=== PATIENT | female | born 1955 | race Caucasian/White ===

== ENCOUNTER 2018-09-06 10:20 | Emergency (ER) | payer MEDICARE, MEDICAID ==
[~2018-09-06] VITALS: Ht 162.6 cm; Wt 64.5 kg
[~2018-09-06 10:20] MED LIST: ACET-890 PO; AMLO10TA PO; BENZ1LOZ61 PO; DIVA-37 PO; DIVA-76 PO; DOCU-148 PO; DOCU100C41 PO; FAMO-1 PO; FAMO20TA8 PO; LACT-187 PO; LEVO88TA7 PO; LORA-660 PO; LORA0.5T PO; LORA10TA7 PO; LOSA25TA12 PO; PROP40TA7 PO; PROP40TA72 PO; QUET-1 PO; QUET100T33 PO; TEMA30CA PO; TEMA30CA5 PO
[2018-09-06 12:01] LABS: BASOPHILS % (AUTO) 0.5 % (0-1); EOSINOPHILS # (AUTO) 0.1 X10'3 (0-0.9); HEMATOCRIT 24.9 % (35.0-45.0); HEMOGLOBIN 8.2 g/dl (12.0-16.0); LYMPHOCYTES # (AUTO) 1.4 X10'3 (1.1-4.8); LYMPHOCYTES % (AUTO) 39.9 % (21-51); MEAN CORPUSCULAR HEMOGLOBIN 29.7 PG (27.0-31.0); MEAN CORPUSCULAR VOLUME 89.9 FL (78-98); MEAN PLATELET VOLUME 7.7 FL (7.4-10.4); MONOCYTES # (AUTO) 0.3 X10'3 (0-0.9); MONOCYTES % (AUTO) 9.2 % (2-12); NEUTROPHILS # (AUTO) 1.7 X10'3 (1.8-7.7); NEUTROPHILS % (AUTO) 48.4 % (42-75); PLATELET COUNT 211 X10'3 (140-440); RED BLOOD COUNT 2.77 X10'6 (4.20-5.60); WHITE BLOOD COUNT 3.5 X10'3 (4.5-11.0)
[2018-09-06 12:15] LABS: URINE AMPHETAMINE SCREEN NEGATIVE (Neg); URINE BARBITUATE SCREEN NEGATIVE (Neg); URINE BENZODIAZEPINES SCREEN NEGATIVE (Neg); URINE CANNABINOID SCREEN NEGATIVE (Neg); URINE COCAINE SCREEN NEGATIVE (Neg); URINE METHADONE SCREEN NEGATIVE (Neg); URINE OPIATE SCREEN NEGATIVE (Neg); URINE PHENCYCLIDINE SCREEN NEGATIVE (Neg)
[2018-09-06 12:19] LABS: ALANINE AMINOTRANSFERASE 19 U/L (12-78); ALBUMIN 3.1 G/DL (3.4-5.0); ALBUMIN/GLOBULIN RATIO 0.8 (1.1-1.5); ALKALINE PHOSPHATASE 87 IU/L (46-116); ANION GAP 12 (8-16); ASPARTATE AMINO TRANSFERASE 28 U/L (10-37); BILIRUBIN,TOTAL 0.4 MG/DL (0.1-1.0); BLOOD UREA NITROGEN 53 MG/DL (7-18); BUN/CREATININE RATIO 10.4 (6.6-38.0); CALCIUM 10.2 MG/DL (8.5-10.1); CHLORIDE 105 MMOL/L (99-107); CREATININE 5.12 MG/DL (0.40-0.90); ETHANOL < 0.010 GM/DL (0.0-0.010); GLUCOSE 92 MG/DL (70-104); POTASSIUM 3.8 MMOL/L (3.5-5.1); SODIUM 142 MMOL/L (135-145); TOTAL PROTEIN 7.1 G/DL (6.4-8.2); eGFR 9 ML/MIN
[2018-09-06] MEDS ORDERED: normal saline 1000ML IV soln IVB ONE (14:05)
[2018-09-06] MEDS ORDERED: LEVO100T PO (17:23)
[2018-09-06] MEDS ORDERED: QUET400T3 PO (17:31)
[2018-09-06 17:36] LABS: ANION GAP 11 (8-16); BLOOD UREA NITROGEN 49 MG/DL (7-18); BUN/CREATININE RATIO 10.2 (6.6-38.0); CALCIUM 9.9 MG/DL (8.5-10.1); CHLORIDE 107 MMOL/L (99-107); CREATININE 4.82 MG/DL (0.40-0.90); GLUCOSE 87 MG/DL (70-104); POTASSIUM 3.8 MMOL/L (3.5-5.1); SODIUM 144 MMOL/L (135-145); TOTAL CARBON DIOXIDE 26.2 MMOL/L (24-32); eGFR 9 ML/MIN
[2018-09-06] MEDS: LORazepam 0.5 MG tablet PO PRN ×2 (17:55→20:34)
[2018-09-06] MEDS: LACTOSE FREE FOOD PO SCH (18:00)
[2018-09-06] MEDS ORDERED: acetaminophen 325mg tablet PO PRN (18:00)
[2018-09-06] MEDS ORDERED: PROPRANOLOL HCL PO SCH (20:00)
[2018-09-06] MEDS: propranolol 40mg tablet PO SCH ×2 (20:34→21:14)
[2018-09-06] MEDS: famotidine 20mg tablet PO SCH ×2 (20:34→21:14)
[2018-09-06] MEDS: quetiapine 100mg tablet PO SCH ×2 (20:34→21:00)
[2018-09-06] MEDS: docusate sod 100mg capsule PO SCH ×2 (20:35→21:00)
[2018-09-06] MEDS ORDERED: QUETIAPINE FUMARATE PO SCH (21:00)
[2018-09-06] MEDS ORDERED: haloperidol lactate 5mg/ml inj IM ONE (22:40)
[2018-09-06] MEDS ORDERED: LORazepam 2 mg/ml vial IM ONE (22:40)
[2018-09-07 00:59] LABS: CLARITY,URINE CLEAR (Clear); COLOR,URINE YELLOW (Yellow); GLUCOSE, URINE NEGATIVE (Neg); KETONES,URINE NEGATIVE (Neg); LEUKOCYTE ESTERASE ,URINE NEGATIVE (Neg); NITRITES, URINE NEGATIVE (Neg); OCCULT BLOOD,URINE LARGE (Neg); PH,URINE 6.5 (4.8-8.0); PROTEIN,URINE NEGATIVE (Neg); UROBILINOGEN,URINE 0.2 E.U/dL (0.2-1.0)
[2018-09-07 01:04] LABS: UA COLLECTION TYPE CLN CATCH MIDSTREAM
[2018-09-07 01:07] LABS: BACTERIA,URINE FEW /HPF (Neg); MUCUS STRANDS NONE SEEN /LPF (Neg); SQUAMOUS EPITHELIAL CELL,UR FEW /LPF (FEW); WBC,URINE NONE SEEN /HPF (0-4)
[2018-09-07] MEDS ORDERED: haloperidol lactate 5mg/ml inj IM ONE (02:00)
[2018-09-07] MEDS ORDERED: normal saline 1000ML IV soln IVB ONE (06:25)
[2018-09-07] MEDS ORDERED: amLODIPine 5mg tablet PO SCH (08:00)
[2018-09-07] MEDS: LACTOSE FREE FOOD PO SCH (08:00)
[2018-09-07] MEDS ORDERED: losartan 25mg tablet PO SCH (08:00)
[2018-09-07] MEDS ORDERED: levoTHYROXINE 100mcg tablet PO SCH (08:00)
[2018-09-07] MEDS ORDERED: non-formulary drug (Amlodipine Besylate 1 TABLET) PO SCH (08:00)
[2018-09-07] MEDS: famotidine 20mg tablet PO SCH (08:01)
[2018-09-07] MEDS: propranolol 40mg tablet PO SCH (08:02)
[2018-09-07] MEDS: LORazepam 0.5 MG tablet PO PRN (08:10)
[2018-09-07] MEDS ORDERED: LORazepam 2 mg/ml vial IV ONE (09:00)
[2018-09-07 12:09] LABS: ALBUMIN 2.8 G/DL (3.4-5.0); ANION GAP 9 (8-16); BLOOD UREA NITROGEN 43 MG/DL (7-18); BUN/CREATININE RATIO 10.7 (6.6-38.0); CALCIUM 9.8 MG/DL (8.5-10.1); CHLORIDE 110 MMOL/L (99-107); CREATININE 4.03 MG/DL (0.40-0.90); GLUCOSE 95 MG/DL (70-104); POTASSIUM 3.7 MMOL/L (3.5-5.1); SODIUM 145 MMOL/L (135-145); TOTAL CARBON DIOXIDE 25.7 MMOL/L (24-32); eGFR 11 ML/MIN
[2018-09-07 12:49] LABS: CLARITY,URINE CLEAR (Clear); COLOR,URINE YELLOW (Yellow); GLUCOSE, URINE NEGATIVE (Neg); KETONES,URINE NEGATIVE (Neg); LEUKOCYTE ESTERASE ,URINE NEGATIVE (Neg); NITRITES, URINE NEGATIVE (Neg); OCCULT BLOOD,URINE LARGE (Neg); PH,URINE 6.5 (4.8-8.0); PROTEIN,URINE NEGATIVE (Neg); UROBILINOGEN,URINE 0.2 E.U/dL (0.2-1.0)
[2018-09-07 12:57] LABS: UA COLLECTION TYPE CLN CATCH MIDSTREAM
[2018-09-07 12:58] LABS: BACTERIA,URINE NONE SEEN /HPF (Neg); MUCUS STRANDS NONE SEEN /LPF (Neg); SQUAMOUS EPITHELIAL CELL,UR NONE SEEN /LPF (FEW); WBC,URINE NONE SEEN /HPF (0-4)
[2018-09-07] MEDS ORDERED: lactose-reduced food (Ensure Enlive) - 237ml bottle PO SCH (13:08)
[2018-09-07 16:47] VITALS: BP 140/74
== END 2018-09-07 16:49 | disposition home or self-care (01) ==
LOC: ER 10:21
DX: F28 Other psychotic disorder not due to a substance or known physiological condition (principal); F20.9 Schizophrenia, unspecified; F32.9 Major depressive disorder, single episode, unspecified; Z90.49 Acquired absence of other specified parts of digestive tract; Z98.890 Other specified postprocedural states; Z86.718 Personal history of other venous thrombosis and embolism; Z88.2 Allergy status to sulfonamides; Z88.1 Allergy status to other antibiotic agents; Z79.899 Other long term (current) drug therapy
CPT/HCPCS: 36415; 80048; 80053; 80305; 80320; 81001; 84443; 85025; 96372; 96374; 99285; J1630; J2060

== ENCOUNTER 2018-09-07 16:38 | Inpatient (IN) | payer MEDICARE, MEDICAID ==
[~2018-09-07] VITALS: Ht 167.6 cm; Wt 75.8 kg
[~2018-09-07 16:38] MED LIST changes: -ACET-890 PO; -DIVA-37 PO; -DOCU100C41 PO; -FAMO20TA8 PO; +LEVO100T PO; -LEVO88TA7 PO; -LORA-660 PO; -PROP40TA7 PO; -QUET-1 PO; -QUET100T33 PO; +QUET400T3 PO; -TEMA30CA PO
[2018-09-07 17:04] VITALS: BP 130/74
[2018-09-07] MEDS ORDERED: magnesium hydroxide 30ml (MOM) UD suspension PO PRN (17:04)
[2018-09-07] MEDS ORDERED: acetaminophen 325mg tablet PO PRN ×2 (17:04)
[2018-09-07] MEDS ORDERED: mag hydrox/Alum hydrox/simeth 30ml oral suspension PO PRN (17:04)
[2018-09-07] MEDS ORDERED: tuberculin, purif. prot. deriv. 5 units/0.1ml ID ONE (17:25)
[2018-09-07 18:33] LABS: CHOL/HDL RATIO 3.1 (0.00-4.99); CHOLESTEROL 244 MG/DL (0-200); HDL CHOLESTEROL 79 MG/DL (35-60); LDL CHOLESTEROL 114 MG/DL (50-100); TRIGLYCERIDES 128 MG/DL (20-135)
[2018-09-07] MEDS ORDERED: benzocaine/menthol oral lozeng 1 EACH BOX MM SCH (19:00)
[2018-09-07] MEDS ORDERED: benzocaine/menthol oral lozeng 1 EACH BOX MM PRN (19:05)
[2018-09-07 20:00] VITALS: BP 110/66
[2018-09-07] MEDS: divalproex sodium 500mg tablet.DR PO SCH (20:56)
[2018-09-07] MEDS: quetiapine 100mg tablet PO SCH (20:57)
[2018-09-07] MEDS: propranolol 40mg tablet PO SCH (20:58)
[2018-09-07] MEDS: famotidine 20mg tablet PO SCH (20:58)
[2018-09-07] MEDS: docusate sod 100mg capsule PO SCH (20:58)
[2018-09-07] MEDS ORDERED: docusate sod 100mg capsule PO SCH (21:00)
[2018-09-08 08:00] VITALS: BP 92/62
[2018-09-08] MEDS: propranolol 40mg tablet PO SCH ×2 (08:00→19:29)
[2018-09-08] MEDS ORDERED: docusate sod 100mg capsule PO SCH (08:00)
[2018-09-08] MEDS: losartan 25mg tablet PO SCH (08:00)
[2018-09-08] MEDS: amLODIPine 5mg tablet PO SCH (08:00)
[2018-09-08] MEDS: lactose-reduced food (Ensure Enlive) - 237ml bottle PO SCH ×2 (08:00→13:00)
[2018-09-08] MEDS ORDERED: normal saline 1000ml 1,000 ML IV ONE (09:00)
[2018-09-08] MEDS: divalproex sodium 500mg tablet.DR PO SCH ×2 (09:10→19:29)
[2018-09-08] MEDS: levoTHYROXINE 100mcg tablet PO SCH (09:11)
[2018-09-08] MEDS: docusate sod 100mg capsule PO SCH ×2 (09:11→19:29)
[2018-09-08] MEDS: famotidine 20mg tablet PO SCH ×2 (09:11→19:29)
[2018-09-08] MEDS: loratadine 10mg tablet PO SCH (09:12)
[2018-09-08 11:29] LABS: BASOPHILS % (AUTO) 0.4 % (0-1); EOSINOPHILS # (AUTO) 0.2 X10'3 (0-0.9); EOSINOPHILS % (AUTO) 2.9 % (0-6); HEMOGLOBIN 9.4 g/dl (12.0-16.0); LYMPHOCYTES # (AUTO) 2.4 X10'3 (1.1-4.8); LYMPHOCYTES % (AUTO) 37.1 % (21-51); MEAN CORPUSCULAR HEMOGLOBIN 29.6 PG (27.0-31.0); MEAN CORPUSCULAR HGB CONC 32.6 % (33.0-36.5); MEAN CORPUSCULAR VOLUME 90.8 FL (78-98); MEAN PLATELET VOLUME 8.4 FL (7.4-10.4); MONOCYTES # (AUTO) 0.4 X10'3 (0-0.9); MONOCYTES % (AUTO) 5.5 % (2-12); NEUTROPHILS # (AUTO) 3.5 X10'3 (1.8-7.7); NEUTROPHILS % (AUTO) 54.1 % (42-75); PLATELET COUNT 266 X10'3 (140-440); RED BLOOD COUNT 3.19 X10'6 (4.20-5.60); WHITE BLOOD COUNT 6.4 X10'3 (4.5-11.0)
[2018-09-08 11:40] LABS: ALANINE AMINOTRANSFERASE 19 U/L (12-78); ALBUMIN 3.1 G/DL (3.4-5.0); ALBUMIN/GLOBULIN RATIO 0.7 (1.1-1.5); ALKALINE PHOSPHATASE 110 IU/L (46-116); ANION GAP 10 (8-16); ASPARTATE AMINO TRANSFERASE 22 U/L (10-37); BILIRUBIN,TOTAL 0.3 MG/DL (0.1-1.0); BLOOD UREA NITROGEN 43 MG/DL (7-18); BUN/CREATININE RATIO 10.9 (6.6-38.0); CALCIUM 9.7 MG/DL (8.5-10.1); CHLORIDE 106 MMOL/L (99-107); CREATININE 3.96 MG/DL (0.40-0.90); GLUCOSE 90 MG/DL (70-104); POTASSIUM 4.2 MMOL/L (3.5-5.1); SODIUM 141 MMOL/L (135-145); TOTAL CARBON DIOXIDE 24.9 MMOL/L (24-32); TOTAL PROTEIN 7.6 G/DL (6.4-8.2); eGFR 11 ML/MIN
[2018-09-08] MEDS: normal saline 1000ml 1,000 ML IV SCH ×2 (13:59→22:55)
[2018-09-08] MEDS ORDERED: haloperidol 5mg tablet PO ONE (14:50)
[2018-09-08] MEDS ORDERED: haloperidol 1mg tablet PO ONE (15:05)
[2018-09-08 17:58] LABS: PHOSPHORUS 2.7 MG/DL (2.3-4.5)
[2018-09-08] MEDS: NUT.TX.IMP.RENAL FXN,LAC-REDUC (Nepro) 237 ML VANILLA PO SCH (18:00)
[2018-09-08] MEDS ORDERED: NUT.TX.IMP.RENAL FXN,LAC-REDUC (Nepro) 237 ML VANILLA PO SCH (18:00)
[2018-09-08 19:00] VITALS: BP 98/60
[2018-09-08] MEDS: quetiapine 100mg tablet PO SCH (19:28)
[2018-09-08] MEDS: haloperidol 1mg tablet PO SCH (19:29)
[2018-09-08] MEDS: temazepam 15mg capsule PO PRN (21:00)
[2018-09-08] MEDS ORDERED: OLANZapine 5mg rapidly disint. tablet PO ONE (22:50)
[2018-09-08] MEDS: LORazepam 0.5 MG tablet PO PRN (22:55)
[2018-09-09 07:02] LABS: BASOPHILS % (AUTO) 0.3 % (0-1); EOSINOPHILS # (AUTO) 0.3 X10'3 (0-0.9); EOSINOPHILS % (AUTO) 5.9 % (0-6); HEMATOCRIT 25.1 % (35.0-45.0); HEMOGLOBIN 8.2 g/dl (12.0-16.0); LYMPHOCYTES # (AUTO) 1.6 X10'3 (1.1-4.8); LYMPHOCYTES % (AUTO) 36.5 % (21-51); MEAN CORPUSCULAR HEMOGLOBIN 29.6 PG (27.0-31.0); MEAN CORPUSCULAR HGB CONC 32.7 % (33.0-36.5); MEAN CORPUSCULAR VOLUME 90.6 FL (78-98); MEAN PLATELET VOLUME 7.9 FL (7.4-10.4); MONOCYTES # (AUTO) 0.3 X10'3 (0-0.9); MONOCYTES % (AUTO) 6.2 % (2-12); NEUTROPHILS # (AUTO) 2.3 X10'3 (1.8-7.7); NEUTROPHILS % (AUTO) 51.1 % (42-75); PLATELET COUNT 199 X10'3 (140-440); RED BLOOD COUNT 2.78 X10'6 (4.20-5.60); RED CELL DISTRIBUTION WIDTH 16.8 % (11.5-14.5); WHITE BLOOD COUNT 4.5 X10'3 (4.5-11.0)
[2018-09-09] MEDS: normal saline 1000ml 1,000 ML IV SCH ×2 (07:12→18:50)
[2018-09-09 07:22] LABS: ALBUMIN 2.2 G/DL (3.4-5.0); ANION GAP 8 (8-16); BLOOD UREA NITROGEN 37 MG/DL (7-18); BUN/CREATININE RATIO 11.5 (6.6-38.0); CALCIUM 9.4 MG/DL (8.5-10.1); CHLORIDE 113 MMOL/L (99-107); CREATININE 3.22 MG/DL (0.40-0.90); GLUCOSE 92 MG/DL (70-104); POTASSIUM 4.2 MMOL/L (3.5-5.1); SODIUM 145 MMOL/L (135-145); TOTAL CARBON DIOXIDE 23.9 MMOL/L (24-32); eGFR 15 ML/MIN
[2018-09-09] MEDS: levoTHYROXINE 100mcg tablet PO SCH (07:37)
[2018-09-09] MEDS: loratadine 10mg tablet PO SCH (07:37)
[2018-09-09] MEDS: propranolol 40mg tablet PO SCH ×2 (07:37→20:35)
[2018-09-09] MEDS: losartan 25mg tablet PO SCH (07:39)
[2018-09-09] MEDS: famotidine 20mg tablet PO SCH ×2 (07:39→20:36)
[2018-09-09] MEDS: haloperidol 1mg tablet PO SCH ×2 (07:39→20:36)
[2018-09-09] MEDS: amLODIPine 5mg tablet PO SCH (07:39)
[2018-09-09] MEDS: divalproex sodium 500mg tablet.DR PO SCH ×2 (07:39→20:37)
[2018-09-09] MEDS: docusate sod 100mg capsule PO SCH ×2 (07:51→20:35)
[2018-09-09] MEDS: LORazepam 0.5 MG tablet PO PRN (07:55)
[2018-09-09 08:00] VITALS: BP 127/70
[2018-09-09] MEDS: NUT.TX.IMP.RENAL FXN,LAC-REDUC (Nepro) 237 ML VANILLA PO SCH ×3 (08:00→18:16)
[2018-09-09] MEDS ORDERED: LORazepam 0.5 MG tablet PO ONE ×2 (08:20→12:15)
[2018-09-09] MEDS ORDERED: OLANZapine 5mg rapidly disint. tablet PO ONE (08:20)
[2018-09-09] MEDS ORDERED: haloperidol 1mg tablet PO ONE (12:15)
[2018-09-09 17:58] LABS: CLARITY,URINE CLEAR (Clear); COLOR,URINE YELLOW (Yellow); GLUCOSE, URINE NEGATIVE (Neg); KETONES,URINE NEGATIVE (Neg); LEUKOCYTE ESTERASE ,URINE TRACE (Neg); NITRITES, URINE NEGATIVE (Neg); OCCULT BLOOD,URINE SMALL (Neg); PH,URINE 6.5 (4.8-8.0); PROTEIN,URINE NEGATIVE (Neg); UA COLLECTION TYPE CLN CATCH MIDSTREAM; UROBILINOGEN,URINE 0.2 E.U/dL (0.2-1.0)
[2018-09-09 18:06] LABS: SQUAMOUS EPITHELIAL CELL,UR FEW /LPF (FEW)
[2018-09-09 18:09] LABS: BACTERIA,URINE FEW /HPF (Neg)
[2018-09-09 20:00] VITALS: BP 155/56
[2018-09-09] MEDS: quetiapine 100mg tablet PO SCH (20:35)
[2018-09-09] MEDS: olanzapine 10mg tablet PO SCH (20:36)
[2018-09-09] MEDS: LORazepam 0.5 MG tablet PO SCH (20:37)
[2018-09-09] MEDS ORDERED: OLANZapine 2.5MG tablet PO ONE (21:00)
[2018-09-10] MEDS: normal saline 1000ml 1,000 ML IV SCH (04:53)
[2018-09-10 08:00] VITALS: BP 104/72
[2018-09-10] MEDS: levoTHYROXINE 100mcg tablet PO SCH (08:14)
[2018-09-10] MEDS: LORazepam 0.5 MG tablet PO SCH ×3 (08:14→21:02)
[2018-09-10] MEDS: famotidine 20mg tablet PO SCH ×2 (08:14→21:01)
[2018-09-10] MEDS: losartan 25mg tablet PO SCH (08:15)
[2018-09-10] MEDS: amLODIPine 5mg tablet PO SCH (08:15)
[2018-09-10] MEDS: docusate sod 100mg capsule PO SCH ×2 (08:15→21:01)
[2018-09-10] MEDS: divalproex sodium 500mg tablet.DR PO SCH ×3 (08:15→21:02)
[2018-09-10] MEDS: loratadine 10mg tablet PO SCH (08:15)
[2018-09-10] MEDS: propranolol 40mg tablet PO SCH ×2 (08:15→21:00)
[2018-09-10] MEDS: NUT.TX.IMP.RENAL FXN,LAC-REDUC (Nepro) 237 ML VANILLA PO SCH ×3 (08:16→17:24)
[2018-09-10] MEDS: haloperidol 1mg tablet PO SCH ×3 (08:16→21:01)
[2018-09-10 10:24] LABS: ALBUMIN 2.5 G/DL (3.4-5.0); ANION GAP 9 (8-16); BLOOD UREA NITROGEN 31 MG/DL (7-18); BUN/CREATININE RATIO 10.7 (6.6-38.0); CALCIUM 9.7 MG/DL (8.5-10.1); CHLORIDE 113 MMOL/L (99-107); CREATININE 2.89 MG/DL (0.40-0.90); GLUCOSE 88 MG/DL (70-104); POTASSIUM 4.4 MMOL/L (3.5-5.1); SODIUM 146 MMOL/L (135-145); eGFR 17 ML/MIN
[2018-09-10] MEDS: sodium chloride 0.45% 1,000 ML IV SCH (14:50)
[2018-09-10 19:57] VITALS: BP 129/32
[2018-09-10] MEDS: olanzapine 10mg tablet PO SCH (21:01)
[2018-09-10] MEDS: quetiapine 100mg tablet PO SCH (21:02)
[2018-09-11] MEDS: sodium chloride 0.45% 1,000 ML IV SCH ×2 (04:28→17:57)
[2018-09-11 08:00] VITALS: BP 109/59
[2018-09-11] MEDS: levoTHYROXINE 100mcg tablet PO SCH ×2 (08:00→08:07)
[2018-09-11] MEDS: docusate sod 100mg capsule PO SCH ×3 (08:00→20:44)
[2018-09-11] MEDS: amLODIPine 5mg tablet PO SCH (08:00)
[2018-09-11] MEDS: losartan 25mg tablet PO SCH (08:00)
[2018-09-11] MEDS: loratadine 10mg tablet PO SCH ×2 (08:00→08:07)
[2018-09-11] MEDS: propranolol 40mg tablet PO SCH ×2 (08:00→20:43)
[2018-09-11] MEDS: famotidine 20mg tablet PO SCH ×2 (08:00→20:43)
[2018-09-11] MEDS: divalproex sodium 500mg tablet.DR PO SCH ×3 (08:00→12:42)
[2018-09-11] MEDS: LORazepam 0.5 MG tablet PO SCH ×4 (08:00→20:43)
[2018-09-11] MEDS: haloperidol 1mg tablet PO SCH ×3 (08:00→12:43)
[2018-09-11] MEDS: NUT.TX.IMP.RENAL FXN,LAC-REDUC (Nepro) 237 ML VANILLA PO SCH ×3 (08:09→17:57)
[2018-09-11 10:02] LABS: ALBUMIN 2.2 G/DL (3.4-5.0); ANION GAP 9 (8-16); BLOOD UREA NITROGEN 35 MG/DL (7-18); CALCIUM 8.9 MG/DL (8.5-10.1); CHLORIDE 111 MMOL/L (99-107); CREATININE 2.69 MG/DL (0.40-0.90); GLUCOSE 115 MG/DL (70-104); POTASSIUM 4.3 MMOL/L (3.5-5.1); SODIUM 144 MMOL/L (135-145); TOTAL CARBON DIOXIDE 23.8 MMOL/L (24-32); eGFR 18 ML/MIN
[2018-09-11] MEDS: LORazepam 0.5 MG tablet PO PRN (11:06)
[2018-09-11 20:00] VITALS: BP 138/63
[2018-09-11] MEDS: OLANZapine 5mg rapidly disint. tablet PO SCH (20:44)
[2018-09-11] MEDS: quetiapine 100mg tablet PO SCH (20:44)
[2018-09-12] MEDS: LORazepam 0.5 MG tablet PO PRN
[2018-09-12] MEDS: temazepam 15mg capsule PO PRN ×2 (00:01→20:44)
[2018-09-12 07:36] VITALS: BP 151/87
[2018-09-12] MEDS: propranolol 40mg tablet PO SCH ×2 (07:54→20:44)
[2018-09-12] MEDS: docusate sod 100mg capsule PO SCH ×2 (07:54→20:44)
[2018-09-12] MEDS: loratadine 10mg tablet PO SCH (07:55)
[2018-09-12] MEDS: famotidine 20mg tablet PO SCH ×2 (07:55→20:45)
[2018-09-12] MEDS: levoTHYROXINE 100mcg tablet PO SCH (07:55)
[2018-09-12] MEDS: amLODIPine 5mg tablet PO SCH (07:55)
[2018-09-12] MEDS: losartan 25mg tablet PO SCH (07:55)
[2018-09-12] MEDS: LORazepam 0.5 MG tablet PO SCH ×3 (07:55→20:44)
[2018-09-12] MEDS: valproate sod 250mg/5ml UD oral syrup PO SCH ×3 (07:56→17:32)
[2018-09-12] MEDS: sodium chloride 0.45% 1,000 ML IV SCH (07:56)
[2018-09-12] MEDS: haloperidol 10mg/5ml UD oral solution PO SCH ×2 (07:56→17:32)
[2018-09-12] MEDS: NUT.TX.IMP.RENAL FXN,LAC-REDUC (Nepro) 237 ML VANILLA PO SCH ×3 (08:08→17:34)
[2018-09-12 20:20] VITALS: BP 127/77
[2018-09-12] MEDS: quetiapine 100mg tablet PO SCH (20:44)
[2018-09-12] MEDS: OLANZapine 5mg rapidly disint. tablet PO SCH (20:44)
[2018-09-13] MEDS: sodium chloride 0.45% 1,000 ML IV SCH ×2 (01:31→17:20)
[2018-09-13] MEDS: docusate sod 100mg capsule PO SCH ×2 (08:00→20:17)
[2018-09-13 08:29] VITALS: BP 111/48
[2018-09-13 08:39] LABS: ALBUMIN 2.4 G/DL (3.4-5.0); ANION GAP 8 (8-16); BLOOD UREA NITROGEN 40 MG/DL (7-18); BUN/CREATININE RATIO 15.6 (6.6-38.0); CALCIUM 9.6 MG/DL (8.5-10.1); CHLORIDE 110 MMOL/L (99-107); CREATININE 2.56 MG/DL (0.40-0.90); GLUCOSE 86 MG/DL (70-104); POTASSIUM 4.7 MMOL/L (3.5-5.1); SODIUM 145 MMOL/L (135-145); TOTAL CARBON DIOXIDE 26.8 MMOL/L (24-32); eGFR 19 ML/MIN
[2018-09-13] MEDS: famotidine 20mg tablet PO SCH ×2 (09:37→20:18)
[2018-09-13] MEDS: valproate sod 250mg/5ml UD oral syrup PO SCH ×3 (09:38→19:02)
[2018-09-13] MEDS: LORazepam 0.5 MG tablet PO SCH ×3 (09:38→20:18)
[2018-09-13] MEDS: loratadine 10mg tablet PO SCH (09:38)
[2018-09-13] MEDS: levoTHYROXINE 100mcg tablet PO SCH (09:39)
[2018-09-13] MEDS: haloperidol 10mg/5ml UD oral solution PO SCH ×2 (09:39→19:03)
[2018-09-13] MEDS: losartan 25mg tablet PO SCH (09:43)
[2018-09-13] MEDS: propranolol 40mg tablet PO SCH ×2 (09:44→20:18)
[2018-09-13] MEDS: NUT.TX.IMP.RENAL FXN,LAC-REDUC (Nepro) 237 ML VANILLA PO SCH ×3 (09:44→18:05)
[2018-09-13] MEDS: amLODIPine 5mg tablet PO SCH (09:44)
[2018-09-13] MEDS ORDERED: OLANZapine 5mg rapidly disint. tablet PO ONE (12:10)
[2018-09-13 19:00] VITALS: BP 115/65
[2018-09-13] MEDS: quetiapine 100mg tablet PO SCH (20:17)
[2018-09-13] MEDS: temazepam 15mg capsule PO PRN (20:18)
[2018-09-13] MEDS: OLANZapine 5mg rapidly disint. tablet PO SCH (20:18)
[2018-09-14] MEDS: sodium chloride 0.45% 1,000 ML IV SCH (03:58)
[2018-09-14 08:00] VITALS: BP 132/70
[2018-09-14] MEDS: haloperidol 10mg/5ml UD oral solution PO SCH ×2 (08:35→17:30)
[2018-09-14] MEDS: famotidine 20mg tablet PO SCH ×2 (08:35→20:41)
[2018-09-14] MEDS: levoTHYROXINE 100mcg tablet PO SCH (08:36)
[2018-09-14] MEDS: LORazepam 0.5 MG tablet PO SCH ×3 (08:36→20:41)
[2018-09-14] MEDS: valproate sod 250mg/5ml UD oral syrup PO SCH ×3 (08:36→18:01)
[2018-09-14] MEDS: propranolol 40mg tablet PO SCH ×2 (08:36→20:41)
[2018-09-14] MEDS: amLODIPine 5mg tablet PO SCH (08:36)
[2018-09-14] MEDS: loratadine 10mg tablet PO SCH (08:36)
[2018-09-14] MEDS: docusate sod 100mg capsule PO SCH ×2 (08:36→20:41)
[2018-09-14] MEDS: losartan 25mg tablet PO SCH (08:43)
[2018-09-14] MEDS: NUT.TX.IMP.RENAL FXN,LAC-REDUC (Nepro) 237 ML VANILLA PO SCH ×3 (08:44→18:01)
[2018-09-14] MEDS ORDERED: OLANZapine 5mg rapidly disint. tablet PO ONE (11:25)
[2018-09-14 19:00] VITALS: BP 101/62
[2018-09-14] MEDS: LORazepam 0.5 MG tablet PO PRN (19:34)
[2018-09-14] MEDS: temazepam 15mg capsule PO PRN (20:40)
[2018-09-14] MEDS: OLANZapine 5mg rapidly disint. tablet PO SCH (20:41)
[2018-09-14] MEDS: quetiapine 100mg tablet PO SCH (20:41)
[2018-09-15] MEDS: propranolol 40mg tablet PO SCH ×2 (07:48→20:51)
[2018-09-15] MEDS: LORazepam 0.5 MG tablet PO SCH ×3 (07:48→20:49)
[2018-09-15] MEDS: levoTHYROXINE 100mcg tablet PO SCH (07:48)
[2018-09-15] MEDS: losartan 25mg tablet PO SCH (07:48)
[2018-09-15] MEDS: famotidine 20mg tablet PO SCH ×2 (07:48→20:50)
[2018-09-15] MEDS: docusate sod 100mg capsule PO SCH ×2 (07:48→20:51)
[2018-09-15] MEDS: amLODIPine 5mg tablet PO SCH (07:49)
[2018-09-15] MEDS: valproate sod 250mg/5ml UD oral syrup PO SCH ×3 (07:49→17:21)
[2018-09-15] MEDS: loratadine 10mg tablet PO SCH (07:49)
[2018-09-15] MEDS: NUT.TX.IMP.RENAL FXN,LAC-REDUC (Nepro) 237 ML VANILLA PO SCH ×3 (07:59→18:00)
[2018-09-15 10:14] VITALS: BP 118/74
[2018-09-15 19:00] VITALS: BP 134/76
[2018-09-15] MEDS: OLANZapine 5mg rapidly disint. tablet PO SCH (20:50)
[2018-09-15] MEDS: nystatin 15 GM powder TP SCH (20:51)
[2018-09-15] MEDS: quetiapine 100mg tablet PO SCH (20:53)
[2018-09-15] MEDS ORDERED: valproate sod 250mg/5ml UD oral syrup PO ONE (21:00)
[2018-09-16] MEDS: valproate sod 250mg/5ml UD oral syrup PO SCH ×3 (07:34→21:51)
[2018-09-16] MEDS: propranolol 40mg tablet PO SCH ×2 (07:35→21:50)
[2018-09-16] MEDS: losartan 25mg tablet PO SCH (07:36)
[2018-09-16] MEDS: amLODIPine 5mg tablet PO SCH (07:36)
[2018-09-16] MEDS: famotidine 20mg tablet PO SCH ×2 (07:36→21:50)
[2018-09-16] MEDS: LORazepam 0.5 MG tablet PO SCH ×3 (07:36→21:51)
[2018-09-16] MEDS: docusate sod 100mg capsule PO SCH ×2 (07:43→21:49)
[2018-09-16] MEDS: loratadine 10mg tablet PO SCH (07:43)
[2018-09-16] MEDS: levoTHYROXINE 100mcg tablet PO SCH (07:43)
[2018-09-16 08:00] VITALS: BP 107/44
[2018-09-16] MEDS: nystatin 15 GM powder TP SCH ×3 (08:00→21:51)
[2018-09-16] MEDS: NUT.TX.IMP.RENAL FXN,LAC-REDUC (Nepro) 237 ML VANILLA PO SCH ×2 (08:00→09:25)
[2018-09-16 19:00] VITALS: BP 128/77
[2018-09-16] MEDS: OLANZapine 5mg rapidly disint. tablet PO SCH (21:00)
[2018-09-16] MEDS: quetiapine 100mg tablet PO SCH (21:52)
[2018-09-17 07:53] VITALS: BP 89/59
[2018-09-17] MEDS: docusate sod 100mg capsule PO SCH ×2 (07:53→20:34)
[2018-09-17] MEDS: loratadine 10mg tablet PO SCH (07:53)
[2018-09-17] MEDS: famotidine 20mg tablet PO SCH ×2 (07:54→20:00)
[2018-09-17] MEDS: LORazepam 0.5 MG tablet PO SCH ×3 (07:54→20:35)
[2018-09-17] MEDS: levoTHYROXINE 100mcg tablet PO SCH (07:54)
[2018-09-17] MEDS: nystatin 15 GM powder TP SCH ×3 (08:00→20:36)
[2018-09-17] MEDS: losartan 25mg tablet PO SCH (08:00)
[2018-09-17] MEDS: NUT.TX.IMP.RENAL FXN,LAC-REDUC (Nepro) 237 ML VANILLA PO SCH ×3 (08:00→18:00)
[2018-09-17] MEDS: propranolol 40mg tablet PO SCH (08:00)
[2018-09-17] MEDS: amLODIPine 5mg tablet PO SCH (08:00)
[2018-09-17] MEDS: valproate sod 250mg/5ml UD oral syrup PO SCH ×3 (09:00→20:36)
[2018-09-17 11:25] LABS: ALBUMIN 2.4 G/DL (3.4-5.0); ANION GAP 10 (8-16); BLOOD UREA NITROGEN 62 MG/DL (7-18); BUN/CREATININE RATIO 21.5 (6.6-38.0); CALCIUM 9.2 MG/DL (8.5-10.1); CHLORIDE 109 MMOL/L (99-107); CREATININE 2.88 MG/DL (0.40-0.90); GLUCOSE 92 MG/DL (70-104); POTASSIUM 5.5 MMOL/L (3.5-5.1); SODIUM 143 MMOL/L (135-145); TOTAL CARBON DIOXIDE 23.9 MMOL/L (24-32); eGFR 17 ML/MIN
[2018-09-17 19:58] VITALS: BP 114/67
[2018-09-17] MEDS: OLANZapine 5mg rapidly disint. tablet PO SCH (20:35)
[2018-09-17] MEDS: quetiapine 100mg tablet PO SCH (20:36)
[2018-09-18 08:00] VITALS: BP 106/50
[2018-09-18] MEDS: NUT.TX.IMP.RENAL FXN,LAC-REDUC (Nepro) 237 ML VANILLA PO SCH ×2 (08:00→13:05)
[2018-09-18] MEDS: nystatin 15 GM powder TP SCH ×2 (08:00→20:24)
[2018-09-18] MEDS: LORazepam 0.5 MG tablet PO SCH ×3 (08:28→20:24)
[2018-09-18] MEDS: levoTHYROXINE 100mcg tablet PO SCH (08:28)
[2018-09-18] MEDS: valproate sod 250mg/5ml UD oral syrup PO SCH ×3 (08:28→20:25)
[2018-09-18] MEDS: amLODIPine 5mg tablet PO SCH (08:29)
[2018-09-18] MEDS: loratadine 10mg tablet PO SCH (08:29)
[2018-09-18] MEDS: losartan 25mg tablet PO SCH (08:29)
[2018-09-18] MEDS: docusate sod 100mg capsule PO SCH ×2 (08:29→20:24)
[2018-09-18] MEDS: famotidine 20mg tablet PO SCH ×2 (08:29→20:24)
[2018-09-18 19:00] VITALS: BP 131/71
[2018-09-18] MEDS: quetiapine 100mg tablet PO SCH (20:24)
[2018-09-18] MEDS: OLANZapine 5mg rapidly disint. tablet PO SCH (20:24)
[2018-09-19] MEDS: valproate sod 250mg/5ml UD oral syrup PO SCH ×3 (07:17→20:08)
[2018-09-19] MEDS: LORazepam 0.5 MG tablet PO SCH ×3 (07:18→20:12)
[2018-09-19] MEDS: docusate sod 100mg capsule PO SCH ×2 (07:18→20:15)
[2018-09-19] MEDS: levoTHYROXINE 100mcg tablet PO SCH (07:18)
[2018-09-19] MEDS: loratadine 10mg tablet PO SCH (07:18)
[2018-09-19] MEDS: amLODIPine 5mg tablet PO SCH (07:18)
[2018-09-19] MEDS: losartan 25mg tablet PO SCH (07:18)
[2018-09-19] MEDS: famotidine 20mg tablet PO SCH ×2 (07:18→20:13)
[2018-09-19 07:19] VITALS: BP 126/76
[2018-09-19] MEDS: nystatin 15 GM powder TP SCH ×2 (08:00→20:15)
[2018-09-19 08:01] LABS: BASOPHILS % (AUTO) 0.1 % (0-1); EOSINOPHILS # (AUTO) 0.1 X10'3 (0-0.9); EOSINOPHILS % (AUTO) 2.1 % (0-6); HEMATOCRIT 25.4 % (35.0-45.0); HEMOGLOBIN 8.4 g/dl (12.0-16.0); LYMPHOCYTES # (AUTO) 2.1 X10'3 (1.1-4.8); LYMPHOCYTES % (AUTO) 44.9 % (21-51); MEAN CORPUSCULAR HEMOGLOBIN 29.8 PG (27.0-31.0); MEAN CORPUSCULAR VOLUME 90.3 FL (78-98); MEAN PLATELET VOLUME 8.3 FL (7.4-10.4); MONOCYTES # (AUTO) 0.4 X10'3 (0-0.9); MONOCYTES % (AUTO) 9.3 % (2-12); NEUTROPHILS # (AUTO) 2.1 X10'3 (1.8-7.7); NEUTROPHILS % (AUTO) 43.6 % (42-75); PLATELET COUNT 164 X10'3 (140-440); RED BLOOD COUNT 2.81 X10'6 (4.20-5.60); RED CELL DISTRIBUTION WIDTH 15.7 % (11.5-14.5); WHITE BLOOD COUNT 4.7 X10'3 (4.5-11.0)
[2018-09-19 08:16] LABS: ALANINE AMINOTRANSFERASE 12 U/L (12-78); ALBUMIN 2.6 G/DL (3.4-5.0); ALBUMIN/GLOBULIN RATIO 0.7 (1.1-1.5); ALKALINE PHOSPHATASE 96 IU/L (46-116); ANION GAP 11 (8-16); ASPARTATE AMINO TRANSFERASE 12 U/L (10-37); BILIRUBIN,TOTAL 0.2 MG/DL (0.1-1.0); BLOOD UREA NITROGEN 74 MG/DL (7-18); BUN/CREATININE RATIO 25.5 (6.6-38.0); CALCIUM 9.3 MG/DL (8.5-10.1); CHLORIDE 110 MMOL/L (99-107); GLUCOSE 96 MG/DL (70-104); POTASSIUM 5.6 MMOL/L (3.5-5.1); SODIUM 143 MMOL/L (135-145); TOTAL CARBON DIOXIDE 21.8 MMOL/L (24-32); TOTAL PROTEIN 6.6 G/DL (6.4-8.2); eGFR 16 ML/MIN
[2018-09-19] MEDS: NUT.TX.IMP.RENAL FXN,LAC-REDUC (Nepro) 237 ML VANILLA PO SCH ×3 (08:29→18:00)
[2018-09-19] MEDS: LORazepam 1 MG tablet PO PRN (11:52)
[2018-09-19] MEDS ORDERED: Ivermectin 3mg tablet PO SCH (14:05)
[2018-09-19] MEDS ORDERED: Permethrin 1% 59ml topical rinse TP ONE (14:05)
[2018-09-19 20:00] VITALS: BP 123/58
[2018-09-19] MEDS: quetiapine 100mg tablet PO SCH (20:12)
[2018-09-19] MEDS: OLANZapine 5mg rapidly disint. tablet PO SCH (20:12)
[2018-09-20] MEDS: levoTHYROXINE 100mcg tablet PO SCH (07:51)
[2018-09-20 08:00] VITALS: BP 109/53
[2018-09-20] MEDS: NUT.TX.IMP.RENAL FXN,LAC-REDUC (Nepro) 237 ML VANILLA PO SCH ×3 (08:00→18:06)
[2018-09-20] MEDS: LORazepam 0.5 MG tablet PO SCH ×3 (08:49→20:30)
[2018-09-20] MEDS: docusate sod 100mg capsule PO SCH ×2 (08:49→20:30)
[2018-09-20] MEDS: loratadine 10mg tablet PO SCH (08:49)
[2018-09-20] MEDS: losartan 25mg tablet PO SCH (08:50)
[2018-09-20] MEDS: valproate sod 250mg/5ml UD oral syrup PO SCH ×3 (08:50→20:30)
[2018-09-20] MEDS: amLODIPine 5mg tablet PO SCH (08:50)
[2018-09-20] MEDS: famotidine 20mg tablet PO SCH ×2 (08:50→20:30)
[2018-09-20] MEDS: nystatin 15 GM powder TP SCH ×2 (09:18→20:30)
[2018-09-20] MEDS: LORazepam 1 MG tablet PO PRN (09:46)
[2018-09-20 20:00] VITALS: BP 123/77
[2018-09-20] MEDS: OLANZapine 5mg rapidly disint. tablet PO SCH (20:30)
[2018-09-20] MEDS: quetiapine 100mg tablet PO SCH (20:30)
[2018-09-21] MEDS: levoTHYROXINE 100mcg tablet PO SCH (07:56)
[2018-09-21] MEDS: valproate sod 250mg/5ml UD oral syrup PO SCH ×3 (07:56→20:20)
[2018-09-21] MEDS: famotidine 20mg tablet PO SCH ×2 (07:56→20:22)
[2018-09-21] MEDS: LORazepam 0.5 MG tablet PO SCH ×3 (07:56→20:21)
[2018-09-21] MEDS: docusate sod 100mg capsule PO SCH ×2 (07:56→20:22)
[2018-09-21] MEDS: loratadine 10mg tablet PO SCH (07:56)
[2018-09-21] MEDS: amLODIPine 5mg tablet PO SCH (07:57)
[2018-09-21] MEDS: nystatin 15 GM powder TP SCH ×2 (07:57→20:22)
[2018-09-21 08:00] VITALS: BP 108/52
[2018-09-21] MEDS: NUT.TX.IMP.RENAL FXN,LAC-REDUC (Nepro) 237 ML VANILLA PO SCH ×3 (08:09→18:07)
[2018-09-21] MEDS: losartan 25mg tablet PO SCH (08:12)
[2018-09-21 19:00] VITALS: BP 136/72
[2018-09-21] MEDS: OLANZapine 5mg rapidly disint. tablet PO SCH (20:22)
[2018-09-22] MEDS: LORazepam 1 MG tablet PO PRN (01:09)
[2018-09-22 08:00] VITALS: BP 117/54
[2018-09-22] MEDS: LORazepam 0.5 MG tablet PO SCH ×3 (08:24→20:32)
[2018-09-22] MEDS: losartan 25mg tablet PO SCH (08:24)
[2018-09-22] MEDS: loratadine 10mg tablet PO SCH (08:24)
[2018-09-22] MEDS: docusate sod 100mg capsule PO SCH ×2 (08:24→20:32)
[2018-09-22] MEDS: valproate sod 250mg/5ml UD oral syrup PO SCH ×3 (08:24→20:32)
[2018-09-22] MEDS: levoTHYROXINE 100mcg tablet PO SCH (08:25)
[2018-09-22] MEDS: amLODIPine 5mg tablet PO SCH (08:25)
[2018-09-22] MEDS: NUT.TX.IMP.RENAL FXN,LAC-REDUC (Nepro) 237 ML VANILLA PO SCH ×3 (08:25→18:00)
[2018-09-22] MEDS: famotidine 20mg tablet PO SCH ×2 (08:25→20:32)
[2018-09-22 08:32] LABS: BASOPHILS % (AUTO) 0.1 % (0-1); EOSINOPHILS # (AUTO) 0.1 X10'3 (0-0.9); EOSINOPHILS % (AUTO) 1.5 % (0-6); HEMATOCRIT 27.3 % (35.0-45.0); HEMOGLOBIN 8.9 g/dl (12.0-16.0); LYMPHOCYTES # (AUTO) 2.2 X10'3 (1.1-4.8); LYMPHOCYTES % (AUTO) 48.1 % (21-51); MEAN CORPUSCULAR HEMOGLOBIN 29.6 PG (27.0-31.0); MEAN CORPUSCULAR HGB CONC 32.6 % (33.0-36.5); MEAN CORPUSCULAR VOLUME 90.6 FL (78-98); MEAN PLATELET VOLUME 8.6 FL (7.4-10.4); MONOCYTES # (AUTO) 0.4 X10'3 (0-0.9); MONOCYTES % (AUTO) 7.8 % (2-12); NEUTROPHILS # (AUTO) 1.9 X10'3 (1.8-7.7); NEUTROPHILS % (AUTO) 42.5 % (42-75); PLATELET COUNT 145 X10'3 (140-440); RED BLOOD COUNT 3.01 X10'6 (4.20-5.60); RED CELL DISTRIBUTION WIDTH 15.2 % (11.5-14.5); WHITE BLOOD COUNT 4.6 X10'3 (4.5-11.0)
[2018-09-22 08:55] LABS: ALANINE AMINOTRANSFERASE 10 U/L (12-78); ALBUMIN 2.7 G/DL (3.4-5.0); ALBUMIN/GLOBULIN RATIO 0.7 (1.1-1.5); ALKALINE PHOSPHATASE 101 IU/L (46-116); ANION GAP 10 (8-16); ASPARTATE AMINO TRANSFERASE 12 U/L (10-37); BILIRUBIN,TOTAL 0.2 MG/DL (0.1-1.0); BLOOD UREA NITROGEN 85 MG/DL (7-18); BUN/CREATININE RATIO 26.3 (6.6-38.0); CALCIUM 9.4 MG/DL (8.5-10.1); CHLORIDE 109 MMOL/L (99-107); CREATININE 3.23 MG/DL (0.40-0.90); GLUCOSE 82 MG/DL (70-104); POTASSIUM 5.5 MMOL/L (3.5-5.1); SODIUM 142 MMOL/L (135-145); TOTAL PROTEIN 6.8 G/DL (6.4-8.2); VALPROATE 70 UG/ML (50-100); eGFR 15 ML/MIN
[2018-09-22] MEDS: nystatin 15 GM powder TP SCH ×2 (08:59→20:38)
[2018-09-22] MEDS ORDERED: sodium polystyrene sulfonate 15gm/60ml oral suspension PO ONE (18:15)
[2018-09-22 20:00] VITALS: BP 124/81
[2018-09-22] MEDS: OLANZapine 5mg rapidly disint. tablet PO SCH (20:32)
[2018-09-23 07:51] LABS: ALBUMIN 2.9 G/DL (3.4-5.0); ANION GAP 10 (8-16); BLOOD UREA NITROGEN 86 MG/DL (7-18); BUN/CREATININE RATIO 26.1 (6.6-38.0); CALCIUM 9.4 MG/DL (8.5-10.1); CHLORIDE 106 MMOL/L (99-107); GLUCOSE 91 MG/DL (70-104); PHOSPHORUS 5.3 MG/DL (2.3-4.5); POTASSIUM 5.2 MMOL/L (3.5-5.1); SODIUM 141 MMOL/L (135-145); TOTAL CARBON DIOXIDE 25.2 MMOL/L (24-32); eGFR 14 ML/MIN
[2018-09-23] MEDS: famotidine 20mg tablet PO SCH ×2 (07:56→20:46)
[2018-09-23] MEDS: amLODIPine 5mg tablet PO SCH (07:56)
[2018-09-23] MEDS: levoTHYROXINE 100mcg tablet PO SCH (07:56)
[2018-09-23] MEDS: docusate sod 100mg capsule PO SCH ×2 (07:56→20:46)
[2018-09-23] MEDS: valproate sod 250mg/5ml UD oral syrup PO SCH ×3 (07:57→20:45)
[2018-09-23] MEDS: LORazepam 0.5 MG tablet PO SCH ×3 (07:57→20:46)
[2018-09-23] MEDS: loratadine 10mg tablet PO SCH (07:57)
[2018-09-23] MEDS: nystatin 15 GM powder TP SCH ×2 (07:57→20:53)
[2018-09-23 08:00] VITALS: BP 128/78
[2018-09-23] MEDS: NUT.TX.IMP.RENAL FXN,LAC-REDUC (Nepro) 237 ML VANILLA PO SCH ×3 (08:06→18:00)
[2018-09-23] MEDS ORDERED: normal saline 1000ml 1,000 ML IV ONE (09:30)
[2018-09-23 19:54] VITALS: BP 147/75
[2018-09-23] MEDS: temazepam 15mg capsule PO PRN (20:46)
[2018-09-23] MEDS: OLANZapine 5mg rapidly disint. tablet PO SCH (20:46)
[2018-09-24] MEDS: LORazepam 1 MG tablet PO PRN (04:28)
[2018-09-24 08:00] VITALS: BP 120/90
[2018-09-24] MEDS: NUT.TX.IMP.RENAL FXN,LAC-REDUC (Nepro) 237 ML VANILLA PO SCH ×3 (08:00→18:00)
[2018-09-24] MEDS: famotidine 20mg tablet PO SCH ×2 (08:00→20:35)
[2018-09-24] MEDS: nystatin 15 GM powder TP SCH ×2 (08:00→20:42)
[2018-09-24] MEDS: amLODIPine 5mg tablet PO SCH (08:00)
[2018-09-24] MEDS: loratadine 10mg tablet PO SCH (09:05)
[2018-09-24] MEDS: docusate sod 100mg capsule PO SCH ×2 (09:05→20:35)
[2018-09-24] MEDS: levoTHYROXINE 100mcg tablet PO SCH (09:06)
[2018-09-24] MEDS: LORazepam 0.5 MG tablet PO SCH ×3 (09:06→20:35)
[2018-09-24] MEDS: valproate sod 250mg/5ml UD oral syrup PO SCH ×3 (09:12→20:35)
[2018-09-24 19:34] LABS: ALBUMIN 2.9 G/DL (3.4-5.0); ANION GAP 8 (8-16); BLOOD UREA NITROGEN 79 MG/DL (7-18); BUN/CREATININE RATIO 27.8 (6.6-38.0); CALCIUM 9.5 MG/DL (8.5-10.1); CHLORIDE 105 MMOL/L (99-107); CREATININE 2.84 MG/DL (0.40-0.90); GLUCOSE 99 MG/DL (70-104); PHOSPHORUS 3.5 MG/DL (2.3-4.5); SODIUM 141 MMOL/L (135-145); TOTAL CARBON DIOXIDE 27.7 MMOL/L (24-32); eGFR 17 ML/MIN
[2018-09-24 19:37] LABS: POTASSIUM 4.8 MMOL/L (3.5-5.1)
[2018-09-24 19:50] VITALS: BP 130/78
[2018-09-24] MEDS: OLANZapine 5mg rapidly disint. tablet PO SCH (20:36)
[2018-09-25 08:00] VITALS: BP 122/68
[2018-09-25] MEDS: amLODIPine 5mg tablet PO SCH (08:23)
[2018-09-25] MEDS: famotidine 20mg tablet PO SCH (08:23)
[2018-09-25] MEDS: LORazepam 0.5 MG tablet PO SCH ×2 (08:23→12:20)
[2018-09-25] MEDS: levoTHYROXINE 100mcg tablet PO SCH (08:23)
[2018-09-25] MEDS: docusate sod 100mg capsule PO SCH (08:23)
[2018-09-25] MEDS: loratadine 10mg tablet PO SCH (08:23)
[2018-09-25] MEDS: valproate sod 250mg/5ml UD oral syrup PO SCH ×2 (08:23→12:20)
[2018-09-25] MEDS: nystatin 15 GM powder TP SCH (08:26)
[2018-09-25] MEDS: NUT.TX.IMP.RENAL FXN,LAC-REDUC (Nepro) 237 ML VANILLA PO SCH ×3 (08:27→13:21)
[2018-09-25 11:11] LABS: ALBUMIN 2.5 G/DL (3.4-5.0); ANION GAP 9 (8-16); BLOOD UREA NITROGEN 84 MG/DL (7-18); BUN/CREATININE RATIO 30.5 (6.6-38.0); CALCIUM 9.1 MG/DL (8.5-10.1); CHLORIDE 110 MMOL/L (99-107); CREATININE 2.75 MG/DL (0.40-0.90); GLUCOSE 78 MG/DL (70-104); SODIUM 144 MMOL/L (135-145); TOTAL CARBON DIOXIDE 25.4 MMOL/L (24-32); eGFR 17 ML/MIN
[2018-09-25] MEDS ORDERED: NYSPWD TP (16:20)
[2018-09-25] MEDS ORDERED: PERM60CR4 TP (16:22)
[2018-09-25] MEDS ORDERED: NUT.237L66 PO (16:24)
[2018-09-25] MEDS ORDERED: ATI0.5T PO (16:24)
[2018-09-25] MEDS ORDERED: IVER3TAB2 PO (16:24)
[2018-09-25] MEDS ORDERED: FAMO20TA8 PO (16:24)
[2018-09-25] MEDS ORDERED: DIVA-76 PO (16:24)
[2018-09-25] MEDS ORDERED: FLUP5TAB PO (16:24)
[2018-09-25] MEDS ORDERED: TEMA15CA PO (16:24)
[2018-09-25] MEDS ORDERED: OLAN20TA16 PO (16:24)
[2018-09-25] MEDS ORDERED: COL100C PO (16:24)
[2018-09-26] MEDS ORDERED: Permethrin Cream 60gm TP ONE (14:05)
== END 2018-09-25 17:12 | disposition home or self-care (01) | DRG 885 ==
LOC: ADULT MH 16:52
PROVIDERS: ADMIT Psychiatry & Neurology Psychiatry; ATTEND Psychiatry & Neurology Psychiatry
DX: F25.0 Schizoaffective disorder, bipolar type (principal); N18.6 End stage renal disease; E43 Unspecified severe protein-calorie malnutrition; E87.0 Hyperosmolality and hypernatremia; G91.2 (Idiopathic) normal pressure hydrocephalus; I12.0 Hypertensive chronic kidney disease with stage 5 chronic kidney disease or end stage renal disease; N17.9 Acute kidney failure, unspecified; G47.00 Insomnia, unspecified; E87.5 Hyperkalemia; B85.2 Pediculosis, unspecified; E03.9 Hypothyroidism, unspecified; E78.5 Hyperlipidemia, unspecified; K21.9 Gastro-esophageal reflux disease without esophagitis; E86.0 Dehydration; Z96.652 Presence of left artificial knee joint; Z79.899 Other long term (current) drug therapy; Z99.3 Dependence on wheelchair; Z90.49 Acquired absence of other specified parts of digestive tract; Z88.2 Allergy status to sulfonamides; Z88.8 Allergy status to other drugs, medicaments and biological substances; Z82.3 Family history of stroke; Z80.9 Family history of malignant neoplasm, unspecified; Z68.27 Body mass index [BMI] 27.0-27.9, adult
CPT/HCPCS: 36415; 80048; 80053; 80061; 80164; 81001; 83036; 84100; 84443; 85025; 87070; 87088; J3490; J7030

== ENCOUNTER 2020-04-08 14:47 | Emergency (ER) | payer MEDICARE, MEDICAID ==
[~2020-04-08] VITALS: Ht 165.1 cm; Wt 70.0 kg
[~2020-04-08 14:47] MED LIST changes: -AMLO10TA PO; -BENZ1LOZ61 PO; +CARV3.122 PO; +CIPR250T4 PO; -DOCU-148 PO; +DOCU100C40 PO; -FAMO-1 PO; +FERR325T28 PO; -LACT-187 PO; +LORA-268 PO; -LORA0.5T PO; -LOSA25TA12 PO; +MEGE40TA5 PO; +OLAN10TA19 PO; -PROP40TA72 PO; +QUET-1 PO; -QUET400T3 PO
[2020-04-08 16:09] LABS: HEMOGLOBIN 10.9 g/dl (12.0-16.0); LYMPHOCYTES # (AUTO) 2.3 X10'3 (1.1-4.8); MONOCYTES # (AUTO) 0.4 X10'3 (0-0.9); NEUTROPHILS # (AUTO) 1.2 X10'3 (1.8-7.7)
[2020-04-08 16:12] LABS: BASOPHILS % (AUTO) 0.3 % (0-1); EOSINOPHILS % (AUTO) 1.2 % (0-6); HEMATOCRIT 33.2 % (35.0-45.0); LYMPHOCYTES % (AUTO) 58.3 % (21-51); MEAN CORPUSCULAR HEMOGLOBIN 31.3 PG (27.0-31.0); MEAN CORPUSCULAR HGB CONC 32.7 g/dL (33.0-36.5); MEAN CORPUSCULAR VOLUME 95.7 FL (78-98); MEAN PLATELET VOLUME 8.6 FL (7.4-10.4); MONOCYTES % (AUTO) 9.6 % (2-12); NEUTROPHILS % (AUTO) 30.6 % (42-75); PLATELET COUNT 77 X10'3 (140-440); RED BLOOD COUNT 3.47 X10'6 (4.20-5.60); RED CELL DISTRIBUTION WIDTH 14.9 % (11.5-14.5)
[2020-04-08 16:16] LABS: CLARITY,URINE CLEAR (Clear); COLOR,URINE STRAW (Yellow); GLUCOSE, URINE NEGATIVE (Neg); KETONES,URINE NEGATIVE (Neg); LEUKOCYTE ESTERASE ,URINE NEGATIVE (Neg); NITRITES, URINE NEGATIVE (Neg); OCCULT BLOOD,URINE TRACE-INTACT (Neg); PH,URINE 6.5 (4.8-8.0); PROTEIN,URINE NEGATIVE (Neg); UROBILINOGEN,URINE 0.2 E.U/dL (0.2-1.0)
[2020-04-08 16:22] LABS: PARTIAL THROMBOPLASTIN TIME 28 SECONDS (22-32)
[2020-04-08] MEDS ORDERED: normal saline 1000ml 1,000 ML IV ONE (16:23)
[2020-04-08] MEDS ORDERED: bisacodyl 10mg suppository rectal RC ONE (16:25)
[2020-04-08] MEDS ORDERED: normal saline 1000ML IV soln IVB ONE (16:25)
[2020-04-08 16:27] LABS: UA COLLECTION TYPE CLN CATCH MIDSTREAM
[2020-04-08 16:29] LABS: BACTERIA,URINE FEW /HPF (Neg); RBC,URINE 0-2 /HPF (0-2); SQUAMOUS EPITHELIAL CELL,UR FEW /LPF (FEW); WBC,URINE 0-4 /HPF (0-4)
[2020-04-08 16:34] LABS: ALANINE AMINOTRANSFERASE 15 U/L (12-78); ALBUMIN 2.8 G/DL (3.4-5.0); ALBUMIN/GLOBULIN RATIO 0.7 (1.1-1.5); ALKALINE PHOSPHATASE 90 IU/L (46-116); ANION GAP 4 (8-16); ASPARTATE AMINO TRANSFERASE 24 U/L (10-37); BILIRUBIN,TOTAL 0.3 MG/DL (0.1-1.0); BLOOD UREA NITROGEN 63 MG/DL (7-18); BUN/CREATININE RATIO 26.8 (6.6-38.0); CALCIUM 9.2 MG/DL (8.5-10.1); CHLORIDE 107 MMOL/L (99-107); CREATININE 2.35 MG/DL (0.40-0.90); GLUCOSE 88 MG/DL (70-104); MAGNESIUM 2.2 MG/DL (1.5-2.4); POTASSIUM 5.2 MMOL/L (3.5-5.1); SODIUM 139 MMOL/L (135-145); TOTAL CARBON DIOXIDE 28.1 MMOL/L (24-32); eGFR 21 ML/MIN
[2020-04-08] MEDS ORDERED: magnesium citrate 296ml oral solution PO ONE (16:55)
[2020-04-08 17:57] LABS: PLATELET ESTIMATE DECREASED; TOTAL CELLS COUNTED 100
[2020-04-08 18:01] LABS: ANISOCYTOSIS FEW
--- NOTE | 2020-04-08 18:15 | NUR ---
DR brannon performed disimpaction and ordered a soapsuds emena. pt is taking mag citrate at the moment
--- NOTE | 2020-04-08 18:47 | NUR ---
SOMARY JANE HUGO ORDERED, WAITING FOR SUPPLIES
--- NOTE | 2020-04-08 19:16 | NUR ---
soaps suds emena administered Addendum: 04/08/20 at 1916 by DEBRA pt tolerated well
--- NOTE | 2020-04-08 20:01 | NUR ---
pt up to bedside commode without assist, family at bedside
[2020-04-08] MEDS ORDERED: MYCOL15O TOP (20:12)
[2020-04-08] MEDS ORDERED: MAGN296S70 PO (20:14)
[2020-04-08 20:29] VITALS: BP 146/94
== END 2020-04-08 20:31 | disposition home or self-care (01) ==
LOC: ER 14:47
DX: F23 Brief psychotic disorder (principal); B37.9 Candidiasis, unspecified; F20.9 Schizophrenia, unspecified; K56.41 Fecal impaction; E86.0 Dehydration; N18.9 Chronic kidney disease, unspecified; F32.9 Major depressive disorder, single episode, unspecified; Z86.718 Personal history of other venous thrombosis and embolism; Z90.49 Acquired absence of other specified parts of digestive tract; Z98.890 Other specified postprocedural states; Z88.2 Allergy status to sulfonamides; Z88.8 Allergy status to other drugs, medicaments and biological substances; Z79.899 Other long term (current) drug therapy
CPT/HCPCS: 36415; 71045; 74018; 80053; 81001; 83605; 83735; 84145; 85025; 85610; 85730; 87040; 93005; 96360; 99285; J7030

== ENCOUNTER 2020-12-25 12:19 | Emergency (ER) | payer MEDICARE, MEDICAID ==
[~2020-12-25] VITALS: Ht 160 cm; Wt 65.8 kg
[~2020-12-25 12:19] MED LIST changes: +MAGN296S70 PO
--- NOTE | 2020-12-25 12:56 | NUR ---
HERRERA TRIPP REPORTS THAT PT WAS TAKING .5 BID. [facility], DR MIRI MOISE DISCONTINUED THE ATIVAN 3 WEEKS AGO. PT'S BEHAVIOR ESCALATING OVER THE PAST 3 WEEKS.
[2020-12-25] MEDS ORDERED: LORazepam 1 MG tablet PO ONE (13:05)
[2020-12-25] MEDS ORDERED: DIVA500T9 PO (13:25)
[2020-12-25] MEDS ORDERED: TEMA7.5C2 PO (13:25)
[2020-12-25] MEDS ORDERED: OLAN15TA17 PO (13:25)
[2020-12-25] MEDS ORDERED: BUPR75TA12 PO (13:25)
[2020-12-25] MEDS ORDERED: QUET25TA34 PO (13:25)
[2020-12-25] MEDS ORDERED: QUET400T12 PO (13:25)
[2020-12-25] MEDS ORDERED: LEVO100T9 PO (13:36)
[2020-12-25] MEDS ORDERED: CALC-723 PO (13:36)
--- NOTE | 2020-12-25 15:10 | NUR ---
PT'S [facility] [phone] WITH [facility] WITH PICK PT UP WHEN PT IS READY.
[2020-12-25 15:22] LABS: BASOPHILS % (AUTO) 0.5 % (0-1); EOSINOPHILS % (AUTO) 0.9 % (0-6); HEMATOCRIT 30.4 % (35.0-45.0); HEMOGLOBIN 10.2 g/dl (12.0-16.0); LYMPHOCYTES # (AUTO) 2.1 X10'3 (1.1-4.8); LYMPHOCYTES % (AUTO) 51.6 % (21-51); MEAN CORPUSCULAR HEMOGLOBIN 32.4 PG (27.0-31.0); MEAN CORPUSCULAR HGB CONC 33.5 g/dL (33.0-36.5); MEAN CORPUSCULAR VOLUME 96.7 FL (78-98); MEAN PLATELET VOLUME 8.3 FL (7.4-10.4); MONOCYTES # (AUTO) 0.5 X10'3 (0-0.9); MONOCYTES % (AUTO) 12.5 % (2-12); NEUTROPHILS # (AUTO) 1.4 X10'3 (1.8-7.7); NEUTROPHILS % (AUTO) 34.5 % (42-75); PLATELET COUNT 84 X10'3 (140-440); RED BLOOD COUNT 3.15 X10'6 (4.20-5.60); RED CELL DISTRIBUTION WIDTH 12.5 % (11.5-14.5)
[2020-12-25 15:25] LABS: CLARITY,URINE CLEAR (Clear); COLOR,URINE STRAW (Yellow); GLUCOSE, URINE NEGATIVE (Neg); KETONES,URINE NEGATIVE (Neg); LEUKOCYTE ESTERASE ,URINE NEGATIVE (Neg); NITRITES, URINE NEGATIVE (Neg); OCCULT BLOOD,URINE TRACE-LYSED (Neg); PH,URINE 7.5 (4.8-8.0); PROTEIN,URINE NEGATIVE (Neg); UROBILINOGEN,URINE 0.2 E.U/dL (0.2-1.0)
[2020-12-25 15:26] LABS: URINE AMPHETAMINE SCREEN NEGATIVE (Neg); URINE BARBITUATE SCREEN NEGATIVE (Neg); URINE BENZODIAZEPINES SCREEN NEGATIVE (Neg); URINE CANNABINOID SCREEN NEGATIVE (Neg); URINE COCAINE SCREEN NEGATIVE (Neg); URINE METHADONE SCREEN NEGATIVE (Neg); URINE OPIATE SCREEN NEGATIVE (Neg); URINE PHENCYCLIDINE SCREEN NEGATIVE (Neg)
[2020-12-25 15:28] LABS: UA COLLECTION TYPE CLN CATCH MIDSTREAM
[2020-12-25 15:30] LABS: WBC,URINE NONE SEEN /HPF (0-4)
[2020-12-25 15:31] LABS: BACTERIA,URINE NONE SEEN /HPF (Neg); RBC,URINE 0-2 /HPF (0-2); SQUAMOUS EPITHELIAL CELL,UR NONE SEEN /LPF (FEW)
[2020-12-25 15:34] LABS: ALANINE AMINOTRANSFERASE 21 U/L (12-78); ALBUMIN 2.8 G/DL (3.4-5.0); ALBUMIN/GLOBULIN RATIO 0.8 (1.1-1.5); ALKALINE PHOSPHATASE 60 IU/L (46-116); ANION GAP 9 (8-16); ASPARTATE AMINO TRANSFERASE 23 U/L (10-37); BILIRUBIN,TOTAL 0.3 MG/DL (0.1-1.0); BLOOD UREA NITROGEN 56 MG/DL (7-18); BUN/CREATININE RATIO 20.4 (6.6-38.0); CALCIUM 9.8 MG/DL (8.5-10.1); CHLORIDE 111 MMOL/L (99-107); CREATININE 2.74 MG/DL (0.40-0.90); ETHANOL < 0.010 GM/DL (0.0-0.010); GLUCOSE 80 MG/DL (70-104); POTASSIUM 4.6 MMOL/L (3.5-5.1); SODIUM 146 MMOL/L (135-145); TOTAL CARBON DIOXIDE 25.7 MMOL/L (24-32); TOTAL PROTEIN 6.5 G/DL (6.4-8.2); eGFR 17 ML/MIN
[2020-12-25] MEDS ORDERED: diphenhydrAMINE 25mg capsule PO ONE (18:25)
[2020-12-25] MEDS ORDERED: haloperidol 5mg tablet PO ONE (18:25)
--- NOTE | 2020-12-25 18:41 | NUR ---
patient talking to both auditory and visual hallucinatiuons. she did take PO benedryl and halidol w/out difficuylty.
--- NOTE | 2020-12-25 19:02 | NUR ---
patient continues to talk loudly to herself.
[2020-12-25] MEDS ORDERED: QUEtiapine 25mg tablet PO PRN (20:15)
[2020-12-25] MEDS ORDERED: divalproex sod 250mg ER (24-hour) tablet PO ONE (20:25)
[2020-12-25] MEDS: quetiapine 100mg tablet PO SCH (20:27)
[2020-12-25] MEDS: zolpidem 5mg tablet PO SCH (20:35)
[2020-12-25] MEDS: ferrous sulfate 325mg tablet PO SCH (21:00)
[2020-12-25] MEDS: OLANZAPINE 5 MG TABLET PO SCH (21:00)
--- NOTE | 2020-12-25 22:19 | NUR ---
PATIETN SLEEPING UNDISTURBED.
--- NOTE | 2020-12-25 22:55 | NUR ---
PATIENT USED BATHROOM WITH ASSIST VIA PCT. TECH NOTED A HEMATOMA ON HER LEFT WRIST.
[2020-12-26] MEDS ORDERED: LORazepam 1 MG tablet PO ONE ×3 (02:10→18:15)
--- NOTE | 2020-12-26 02:21 | NUR ---
pt was up screaming, and hollaring and crying. Very upset. Adm ativan. Pt is calming down. Tucked her back into bed. Clau Umana at BS to assist.
--- NOTE | 2020-12-26 03:05 | NUR ---
Pt continues to yell out sporadically, but episodes are fewer.
[2020-12-26] MEDS ORDERED: divalproex sod 250mg ER (24-hour) tablet PO SCH (08:00)
[2020-12-26] MEDS: buPROPion 75mg tablet PO SCH (08:05)
[2020-12-26] MEDS: loratadine 10mg tablet PO SCH (08:06)
[2020-12-26] MEDS: levoTHYROXINE 100mcg tablet PO SCH (08:06)
[2020-12-26] MEDS: docusate sod 100mg capsule PO SCH ×2 (08:06→20:42)
[2020-12-26] MEDS: calcium carbonate/vitamin D3 tablet PO SCH ×2 (08:07→20:42)
[2020-12-26] MEDS: carVEDilol 3.125mg tablet PO SCH ×2 (08:07→20:41)
--- NOTE | 2020-12-26 09:19 | NUR ---
Discussed pt's active hallucinations with ilda caldwell after checking to see if current Depakote/valproic acid levels had been drawn. They had not. Per lab, this is a send out which would not be sent until Monday and resulting , Monday. Per ilda Caldwell we will hold off getting Depakote levels today and instead seek to have [facility] provider review pt's emar and determine if another antipsychotic might be appropriate. Spoke with [facility] REED Duran & explained situation. She will discuss request with Dr Sanderson when he arrives today. ILDA Caldwell updated.
[2020-12-26] MEDS ORDERED: OLANZapine 5mg rapidly disint. tablet PO ONE (10:45)
[2020-12-26] MEDS ORDERED: olanzapine 10mg tablet PO ONE (12:25)
[2020-12-26] MEDS ORDERED: olanzapine 10mg tablet PO SCH (12:25)
[2020-12-26 13:07] LABS: ALANINE AMINOTRANSFERASE 23 U/L (12-78); ALBUMIN 2.6 G/DL (3.4-5.0); ALBUMIN/GLOBULIN RATIO 0.7 (1.1-1.5); ALKALINE PHOSPHATASE 61 IU/L (46-116); ANION GAP 5 (8-16); ASPARTATE AMINO TRANSFERASE 19 U/L (10-37); BILIRUBIN,TOTAL 0.2 MG/DL (0.1-1.0); BLOOD UREA NITROGEN 50 MG/DL (7-18); BUN/CREATININE RATIO 19.3 (6.6-38.0); CALCIUM 9.2 MG/DL (8.5-10.1); CHLORIDE 106 MMOL/L (99-107); CREATININE 2.59 MG/DL (0.40-0.90); GLUCOSE 104 MG/DL (70-104); POTASSIUM 4.7 MMOL/L (3.5-5.1); SODIUM 138 MMOL/L (135-145); TOTAL CARBON DIOXIDE 26.9 MMOL/L (24-32); TOTAL PROTEIN 6.3 G/DL (6.4-8.2); eGFR 19 ML/MIN
--- NOTE | 2020-12-26 13:52 | NUR ---
PT REMAINS AWAKE, SITTING ON SIDE OF THE BED AND COLORING, SPEAKING LOUDLY TO SELF.
[2020-12-26] MEDS ORDERED: OLANZapine 2.5MG tablet PO SCH (16:30)
[2020-12-26] MEDS ORDERED: OLANZapine 2.5MG tablet PO ONE (16:30)
[2020-12-26] MEDS: lactulose 20gm/30ml cup PO SCH ×2 (16:45→20:42)
[2020-12-26] MEDS: OLANZAPINE 5 MG TABLET PO SCH (20:41)
[2020-12-26] MEDS: ferrous sulfate 325mg tablet PO SCH (20:41)
[2020-12-26] MEDS: zolpidem 5mg tablet PO SCH (20:41)
[2020-12-26] MEDS: quetiapine 100mg tablet PO SCH (20:44)
--- NOTE | 2020-12-26 21:14 | NUR ---
patient took her night medds and is sleeping undisturbed.
--- NOTE | 2020-12-27 01:46 | NUR ---
transferred to main ED w/out difficulty
--- NOTE | 2020-12-27 02:36 | NUR ---
patient used bathroom, but began screaming again onced roomed.
[2020-12-27] MEDS ORDERED: OLANZapine 5mg rapidly disint. tablet PO ONE (03:00)
[2020-12-27] MEDS ORDERED: MIDAZolam 5mg/ml 2ml vial IM ONE (03:45)
[2020-12-27] MEDS: levoTHYROXINE 100mcg tablet PO SCH (08:30)
[2020-12-27] MEDS: loratadine 10mg tablet PO SCH (08:30)
[2020-12-27] MEDS: calcium carbonate/vitamin D3 tablet PO SCH ×2 (08:30→20:59)
[2020-12-27] MEDS: docusate sod 100mg capsule PO SCH ×2 (08:30→20:56)
[2020-12-27] MEDS: carVEDilol 3.125mg tablet PO SCH ×2 (08:31→20:56)
[2020-12-27] MEDS: buPROPion 75mg tablet PO SCH (08:31)
[2020-12-27] MEDS: lactulose 20gm/30ml cup PO SCH ×3 (08:33→20:58)
--- NOTE | 2020-12-27 09:00 | NUR ---
pt will sleep for a short period, then wake up yelling nonsense. pt is confused, talking to people that aren't there.
[2020-12-27] MEDS ORDERED: LORazepam 2 mg/ml vial IM ONE (11:00)
[2020-12-27] MEDS ORDERED: haloperidol lactate 5mg/ml inj IM ONE (11:00)
--- NOTE | 2020-12-27 11:17 | NUR ---
pt was screaming, attempting to get out of bed but confused about where she is going. Dr Swain consulted, order for 1 mg ativan, 5 mg haldol, both IM. Pt was cooperative for administration.
--- NOTE | 2020-12-27 13:27 | NUR ---
pt finished lunch, was up to the restroom with her walker. pt then began dancing and laughing on her way back to bed. pt is still confused, speaking nonsense and to people not in the room.
--- NOTE | 2020-12-27 14:36 | NUR ---
pt is asleep, no s/s of distress noted. r/r unlabored.
--- NOTE | 2020-12-27 15:31 | NUR ---
pt is lying in bed yelling and arguing with someone who is not there. pt will laugh one minute, then scream in the next.
[2020-12-27] MEDS: OLANZAPINE 5 MG TABLET PO SCH (20:57)
[2020-12-27] MEDS: quetiapine 100mg tablet PO SCH (20:58)
[2020-12-27] MEDS: ferrous sulfate 325mg tablet PO SCH (20:58)
[2020-12-27] MEDS: zolpidem 5mg tablet PO SCH (20:58)
--- NOTE | 2020-12-28 03:50 | NUR ---
PATIENT UPSET AND SPEAKING WITH PEOPLE WHO ARE NOT THERE, INSISTED ON GETTING UP AND TO HER WALKER, PATIENT WAS REDIRECTED TO BED.
[2020-12-28] MEDS ORDERED: LORazepam 2 mg/ml vial IM ONE (04:00)
[2020-12-28] MEDS ORDERED: haloperidol lactate 5mg/ml inj IM ONE (04:00)
--- NOTE | 2020-12-28 04:01 | NUR ---
Dr. London notified of patient's increasing agitation and crying out loudly which could not be redirected or calmed by staff interventions; new orders received.
[2020-12-28 04:11] VITALS: BP 121/62
--- NOTE | 2020-12-28 04:31 | NUR ---
Ativan and Haldol administered IM per MD order; Lyndsay granados with standby assist. Patient is reassured and is cooperative with medication administration.
--- NOTE | 2020-12-28 06:45 | NUR ---
Pt resting with eyes closed, effortless respirations observed.
--- NOTE | 2020-12-28 08:10 | NUR ---
Pt awake and eating breakfast tray, pt remains calm and cooperative.
[2020-12-28] MEDS: lactulose 20gm/30ml cup PO SCH ×2 (08:17→13:00)
[2020-12-28] MEDS: docusate sod 100mg capsule PO SCH (08:18)
[2020-12-28] MEDS: carVEDilol 3.125mg tablet PO SCH (08:18)
[2020-12-28] MEDS: loratadine 10mg tablet PO SCH (08:18)
--- NOTE | 2020-12-28 08:38 | NUR ---
PT WAS GIVEN TOILETRIES AND WAS ADVISED TO CLEAN UP IN THE BATHROOM.
--- NOTE | 2020-12-28 08:38 | NUR ---
Adriana cunha in [facility] - 12/28/20 at 0838 by ELEANOR PT WAS GIVEN TOILETRIES AND WAS ADVISED TO CLEAN UP IN THE BATHROOM.
[2020-12-28] MEDS: buPROPion 75mg tablet PO SCH (08:44)
[2020-12-28] MEDS: calcium carbonate/vitamin D3 tablet PO SCH (08:44)
[2020-12-28] MEDS: levoTHYROXINE 100mcg tablet PO SCH (08:44)
--- NOTE | 2020-12-28 10:30 | NUR ---
Pt randomly yells out and argues with AH. Spoke with pts SLS administer for caregiving and Rupali reports this is pts baseline/normal. Shoe Dresser aware pt to be re-evaluated by [facility] today and left phone number for any questions. #
--- NOTE | 2020-12-28 13:30 | NUR ---
pER NAE Estes, PT READY FOR DC. STAFF FROM [facility] HAS BEEN CONTACT AND WILL BE HERE TO LICENSED LOAN OFFICER PT BY 1600. PRIMARY RN CARMELA TO BE UPDATED.
--- NOTE | 2020-12-28 15:21 | NUR ---
Pt remains calm and cooperative and is anticipating discharge. Pt curently watching TV show [employer] Dream of Genie.
--- NOTE | 2020-12-28 15:55 | NUR ---
Spoke with Rupali and received report that she will be leaving [place] shortly and drive here to pick pt up and take pt home. ETA approx 1 hour from now.
== END 2020-12-28 17:52 | disposition home or self-care (01) ==
LOC: ER 12:20
DX: F29 Unspecified psychosis not due to a substance or known physiological condition (principal); Z20.822 Contact with and (suspected) exposure to COVID-19; R44.1 Visual hallucinations; N18.9 Chronic kidney disease, unspecified; F32.9 Major depressive disorder, single episode, unspecified; F20.9 Schizophrenia, unspecified; F17.200 Nicotine dependence, unspecified, uncomplicated; Z87.440 Personal history of urinary (tract) infections; Z86.718 Personal history of other venous thrombosis and embolism; Z90.49 Acquired absence of other specified parts of digestive tract; Z98.890 Other specified postprocedural states; Z88.2 Allergy status to sulfonamides; Z88.1 Allergy status to other antibiotic agents; Z88.8 Allergy status to other drugs, medicaments and biological substances; Z79.899 Other long term (current) drug therapy
CPT/HCPCS: 36415; 80053; 80305; 80320; 81001; 82140; 84443; 85025; 87635; 96372; 99285; C9803; J1630; J2060; Q0163; 93005